=== PATIENT | male | born 1945 | race Caucasian/White ===

== ENCOUNTER 2017-04-19 11:29 | Emergency (ER) | payer OTHER ==
[~2017-04-19] VITALS: Ht 177.8 cm; Wt 87.9 kg
[~2017-04-19 11:29] MED LIST: AMARYL2 MG PO; ASPIR 8181 M1 PO; ENDOCET 10-3251 EACH PO; FLEXERIL10 MG PO; GLUCOPHAGE XR500 MG PO; JANUVIA100 MG PO; OMEPRAZOLE20 MG PO; SIMVASTATIN5 MG PO; UROCIT-K10 MEQ PO; ZESTRIL,PRINIV2.5 MG PO
[2017-04-19 13:37] VITALS: BP 145/91
== END 2017-04-19 13:38 | disposition home or self-care (01) ==
LOC: EME 11:29
DX: S61.012A Laceration without foreign body of left thumb without damage to nail, initial encounter (principal); W29.8XXA Contact with other powered hand tools and household machinery, initial encounter
CPT/HCPCS: 73140; 99281; 99283; S0020